=== PATIENT | female | born 1960 | race African-American/Black ===

== ENCOUNTER 2017-10-07 19:17 | Emergency (ER) | payer OTHER ==
[~2017-10-07] VITALS: Ht 167.6 cm; Wt 52.2 kg
[2017-10-07 19:30] VITALS: Ht 167.6 cm; Wt 52.2 kg
[2017-10-07 20:09] LABS: BASOPHIL % 0.4 % (0-2); PLATELET COUNT 155 x10^3mcL (130-400); RED CELL DISTRIBUTION WIDTH 13.8 % (11.5-14.5)
[2017-10-07 20:16] LABS: CALCIUM 9.6 mg/dL (8.5-10.1); CARBON DIOXIDE 24.7 mmol/L (21-32); CHLORIDE SERUM 100 mmol/L (98-107); CREATININE SERUM 0.9 mg/dL (0.6-1.0); GFR1 > 60 mL/min; GLUCOSE SERUM 93 mg/dL (74-106); POTASSIUM SERUM 3.9 mmol/L (3.5-5.1); SODIUM SERUM 131 mmol/L (136-145)
[2017-10-07 20:21] LABS: ALBUMIN 3.8 g/dL (3.4-5.0); ALKALINE PHOSPHATASE 52 U/L (46-116); ALT/SGPT 21 U/L (14-59); AST/SGOT 24 U/L (15-37); BILIRUBIN TOTAL 0.32 mg/dL (0.20-1.00)
[2017-10-07 20:25] LABS: TOTAL PROTEIN, SERUM 8.8 g/dL (6.4-8.2)
[2017-10-07 20:44] LABS: T3 TOTAL 0.89 ng/mL
[2017-10-07 21:26] LABS: FREE T4 0.88 ng/dL (0.76-1.46); FREE THYROXINE INDEX 1.8 ug/dL (1.4-4.5); T4(THYROXINE) 5.7 ug/dL (4.7-13.3)
[2017-10-08 01:16] VITALS: BP 126/75
== END 2017-10-08 01:16 | disposition home or self-care (01) ==
LOC: ED 19:17
PROVIDERS: Emergency Medicine; Specialist
DX: D64.9 Anemia, unspecified (principal); R53.1 Weakness; Z88.2 Allergy status to sulfonamides
CPT/HCPCS: 36415; 83880; 84439; J7030; Q0092